=== PATIENT | male | born 1980 | race Caucasian/White ===

== ENCOUNTER 2016-10-30 18:26 | Emergency (ER) | payer SELFPAY ==
[~2016-10-30] VITALS: Ht 182.9 cm; Wt 60.1 kg
[2016-10-30] MEDS ORDERED: SODIUM CHLORIDE 0.9% 1,000ML IVBOLUS ONE (19:00)
[2016-10-30 19:08] LABS: HEMOGLOBIN 13.6 g/dL (13.7-18.0)
[2016-10-30 19:18] LABS: BLOOD UREA NITROGEN 18 mg/dL (7-18)
[2016-10-30] MEDS ORDERED: OXYC-302 PO (19:27)
[2016-10-30] MEDS ORDERED: KETOROLAC 30 MG/1 ML IM ONE (19:30)
[2016-10-30] MEDS ORDERED: SODIUM CHLORIDE FLUSH 10ML SYR IVF ONE ×2 (19:30→20:30)
[2016-10-30 19:32] VITALS: BP 145/81
[2016-10-30 19:36] LABS: IS PT STATUS REG ER OR PRE ER? YES
[2016-10-30] MEDS ORDERED: KETOROLAC 30 MG/1 ML ONE ×2 (19:48→21:04)
[2016-10-30] MEDS ORDERED: OMNIPAQUE 350 MG/ML, 100ML BOTTLE ONE (20:40)
[2016-10-30] MEDS ORDERED: KETOROLAC 30 MG/1 ML IVPush ONE (21:30)
== END 2016-10-30 21:24 | disposition home or self-care (01) ==
LOC: ED 21:18
DX: M94.0 Chondrocostal junction syndrome [Tietze] (principal); G89.29 Other chronic pain; Z79.891 Long term (current) use of opiate analgesic
CPT/HCPCS: 36415; 71020; 71275; 80048; 82040; 84484; 85025; 85379; 93005; 96374; 99285; J1885; Q9967

== ENCOUNTER 2017-04-17 11:42 | Emergency (ER) | payer OTHER ==
[~2017-04-17] VITALS: Ht 182.9 cm; Wt 57.4 kg
[~2017-04-17 11:42] MED LIST: OXYC-302 PO
[2017-04-17 11:44] VITALS: BP 115/80
== END 2017-04-17 12:45 | disposition home or self-care (01) ==
LOC: ED 12:20
DX: K02.9 Dental caries, unspecified (principal); Z88.5 Allergy status to narcotic agent
CPT/HCPCS: 99283

== ENCOUNTER 2017-05-02 18:29 | Emergency (ER) | payer OTHER ==
[~2017-05-02] VITALS: Ht 182.9 cm; Wt 58.8 kg
[2017-05-02] MEDS ORDERED: BACITRACIN ZINC OINT 500U/GM, 0.9 GM ONE (19:26)
[2017-05-02 19:56] VITALS: BP 134/81
== END 2017-05-02 19:58 | disposition home or self-care (01) ==
LOC: ED 19:30
DX: K08.89 Other specified disorders of teeth and supporting structures (principal); G89.29 Other chronic pain; M54.9 Dorsalgia, unspecified; Z88.6 Allergy status to analgesic agent
CPT/HCPCS: 99283